=== PATIENT | female | born 1975 | race Caucasian/White ===

== ENCOUNTER → 2024-03-16 16:21 | Outpatient (REF) | payer BC, SELFPAY | LOC: MRI 3T 16:21 | PROVIDERS: ATTENDING PHYSICIAN Surgery; FAMILY PHYSICIAN Family Medicine | DX: Z91.89 Other specified personal risk factors, not elsewhere classified (principal); R92.2 Inconclusive mammogram | CPT/HCPCS: 77049; A9585 ==

== ENCOUNTER → 2024-08-28 08:29 | Outpatient (REF) | payer BC, SELFPAY | LOC: WDC 08:29 | PROVIDERS: ATTENDING PHYSICIAN Surgery; FAMILY PHYSICIAN Family Medicine | DX: Z12.31 Encounter for screening mammogram for malignant neoplasm of breast (principal) | CPT/HCPCS: 77063; 77067 ==

== ENCOUNTER → 2025-03-18 16:42 | Outpatient (REF) | payer BC, SELFPAY | LOC: MRI 3T 16:42 | PROVIDERS: ATTENDING PHYSICIAN Surgery; FAMILY PHYSICIAN Family Medicine | DX: R92.2 Inconclusive mammogram (principal); Z91.89 Other specified personal risk factors, not elsewhere classified; Z12.31 Encounter for screening mammogram for malignant neoplasm of breast; Z80.3 Family history of malignant neoplasm of breast | CPT/HCPCS: 77049; A9585 ==

== ENCOUNTER → 2025-09-02 08:23 | Outpatient (REF) | payer OTHER, SELFPAY | LOC: WDC 08:23 | PROVIDERS: ATTENDING PHYSICIAN Surgery; FAMILY PHYSICIAN Family Medicine | DX: Z12.31 Encounter for screening mammogram for malignant neoplasm of breast (principal); Z80.3 Family history of malignant neoplasm of breast; Z91.89 Other specified personal risk factors, not elsewhere classified; R92.2 Inconclusive mammogram | CPT/HCPCS: 77063; 77067 ==